=== PATIENT | male | born 2005 | race Caucasian/White ===

== ENCOUNTER 2025-01-18 13:07 | Emergency (ER) | payer MEDICAID ==
[~2025-01-18] VITALS: Ht 177.8 cm; Wt 150.0 kg
[2025-01-18 13:22] VITALS: TEMP 37.2; O2SAT 100
[2025-01-18] MEDS ORDERED: ACET-2708 MT (14:30)
[2025-01-18 15:12] VITALS: BP 127/89; PULSE 64; RESP 16; O2SAT 100
== END 2025-01-18 15:14 | disposition home or self-care (01) ==
LOC: ER 13:07
DX: M79.671 Pain in right foot (principal)
CPT/HCPCS: 99283; 73630; A6449